=== PATIENT | female | born 1985 | race Caucasian/White ===

== ENCOUNTER 2019-07-28 08:55 | Outpatient (CLI) | payer OTHER ==
--- NOTE | 2019-07-28 11:39 | RAD ---
LEFT ANKLE 3 VIEWS: HISTORY: Left ankle pain. FINDINGS/IMPRESSION: The ankle mortise is maintained. No fracture, dislocation, or bony destruction is identified. There is soft tissue swelling. POS: [facility]
== END 2019-07-28 08:56 | disposition home or self-care (01) ==
LOC: RAD-FRANK 08:55
PROVIDERS: ATTEND Nurse Practitioner Family
DX: M25.572 Pain in left ankle and joints of left foot (principal); M79.89 Other specified soft tissue disorders